=== PATIENT | male | born 1975 | race Caucasian/White ===

== ENCOUNTER → 2023-08-07 08:16 | Outpatient (REF) | payer BC, SELFPAY | LOC: RAD 08:16 | PROVIDERS: ATTENDING PHYSICIAN Radiology Diagnostic Radiology; FAMILY PHYSICIAN Internal Medicine | DX: Z13.5 Encounter for screening for eye and ear disorders (principal) | CPT/HCPCS: 70030 ==

== ENCOUNTER → 2023-08-07 08:27 | Outpatient (REF) | payer BC, SELFPAY | LOC: MRI 3T 08:27 | PROVIDERS: ATTENDING PHYSICIAN Internal Medicine; FAMILY PHYSICIAN Internal Medicine | DX: M54.12 Radiculopathy, cervical region (principal) | CPT/HCPCS: 70030; 72141 ==